=== PATIENT | female | born 1950 ===

== ENCOUNTER 2024-08-29 12:09 | Inpatient (IN) ==
[2024-08-29] MEDS ORDERED: IOPAMIDOL 100 ML BOTTLE IV ONE (12:10)
[2024-08-29] MEDS: 0.9 % SODIUM CHLORIDE 500 ML IV ONE ×2 (12:24→12:37)
[2024-08-29] MEDS: METOPROLOL TARTRATE 5 MG/5 ML VIAL IV SCH ×2 (12:39→23:10)
[2024-08-29] MEDS ORDERED: METOPROLOL TARTRATE 5 MG/5 ML VIAL IV SCH (12:45)
[2024-08-29] MEDS: AMIODARONE 150 MG in DEXTROSE 5% IN WATER 100 ML IV SCH (13:38)
[2024-08-29] MEDS: AMIODARONE 150 MG/3 ML VIAL IV ONE (13:38)
[2024-08-29] MEDS: VANCOMYCIN PER PHARMACY IV ONE (13:39)
[2024-08-29] MEDS: AMIODARONE 360 MG in PREMIX 1 BAG IV SCH ×3 (13:41→19:54)
[2024-08-29 13:45] LABS: Basophils # (Auto) 0.01 K/mcL (0.00-0.30); Basophils % (Auto) 0.1 % (0.0-2.0); Eosinophils # (Auto) 0.09 K/mcL (0.00-0.70); Eosinophils % (Auto) 0.6 % (0.0-7.0); Hematocrit 37.2 % (34.1-44.9); Hemoglobin 10.4 g/dL (11.2-15.7); Lymphocytes # (Auto) 0.92 K/mcL (1.50-4.80); Lymphocytes % (Auto) 6.1 % (15.5-49.0); Mean Cell Volume 84.2 fL (80.0-100.0); Mean Platelet Volume 10.9 fL (8.8-12.5); Monocytes % (Auto) 8.6 % (1.0-12.0); Neutrophils % (Auto) 83.9 % (38.0-78.0); Platelet Count 294 K/mcL (140-440); RBC 4.42 M/mcL (3.59-5.38); Red Cell Distribution Width 19.8 % (11.5-14.5); WBC 15.2 K/mcL (4.5-11.0)
[2024-08-29 13:46] LABS: ALT/SGPT 38 U/L (<40); AST/SGOT 38 U/L (<32); Albumin 3.3 gm/dL (3.2-5.2); Albumin/Globulin Ratio 1.3 (1.0-2.3); Alkaline Phosphatase 221 U/L (39-117); Bilirubin,Total 1.2 mg/dL (0.1-1.0); Blood Urea Nitrogen 72 mg/dL (8-23); Calcium 8.8 mg/dL (8.6-10.4); Carbon Dioxide 19 mmol/L (22-30); Chloride 108 mmol/L (96-108); Creatine Kinase 181 U/L (24-170); Globulin 2.5 gm/dL (2.2-3.7); Glomerular Filtration Rate 31; Glucose 166 mg/dL (70-105); Potassium 5.5 mmol/L (3.3-5.1); Sodium 142 mmol/L (133-145)
[2024-08-29] MEDS: CEFEPIME 2 GM VIAL IV ONE (13:52)
[2024-08-29] MEDS: VANCOMYCIN 1,500 MG in 0.9 % SODIUM CHLORIDE 500 ML IV ONE (13:52)
[2024-08-29 14:36] LABS: Appearance,Urine Cloudy (Clear); Bacteria,Urine Many /hpf (0); Bilirubin,Urine Negative (Negative); Color,Urine Yellow; Glucose,Urine (UA) Negative (Negative); Ketones,Urine Negative (Negative); Leukocyte Esterase,Urine Trace /uL (Negative); Nitrate,Urine Positive (Negative); Protein,Urine 30 mg/dL (Negative); Urine Blood Moderate ery/mcL (Negative); Urine Cellular Cast 3 /lph (0-0); Urine Hyaline Cast 4 /lph (0-2); Urine RBC 20 /hpf (0-3); Urine Renal Epithelial Cells 3 /hpf (0-2); Urine Squamous Epithelial Cell 4 /hpf (0-4); Urine WBC 15 /hpf (0-4); Urobilinogen,Urine Normal
[2024-08-29 14:47] LABS: Free T4 (Free Thyroxine) 1.07 ng/dL (0.93-1.70)
[2024-08-29 14:49] LABS: INR 1.6 (0.9-1.1); Prothrombin Time 19.6 sec (11.9-14.5)
[2024-08-29] MEDS: fentaNYL 100 MCG/2 ML VIAL IV ONE (16:10)
[2024-08-29] MEDS: NALOXONE HCL 0.4 MG/ML VIAL ONE (16:37)
[2024-08-29] MEDS: NALOXONE HCL 0.4 MG/ML VIAL IV ONE (16:37)
[2024-08-29] MEDS: predniSONE 20 MG TABLET PO ONE (17:43)
[2024-08-29] MEDS: FUROSEMIDE 40 MG/4 ML VIAL IV ONE (17:43)
[2024-08-29] MEDS ORDERED: ONDANSETRON 4 MG/2 ML VIAL IV PRN (19:33)
[2024-08-29] MEDS ORDERED: SENNOSIDES 1 TABLET PO PRN (19:33)
[2024-08-29] MEDS ORDERED: NOREPINEPHRINE BITARTRATE 8 MG in 0.9 % SODIUM CHLORIDE 242 ML IV PRN (19:33)
[2024-08-29] MEDS ORDERED: LACTULOSE 20 GM/30 ML ORAL.SOL PO PRN (19:33)
[2024-08-29] MEDS: 0.9 % SODIUM CHLORIDE 250 ML IV SCH (19:35)
[2024-08-29] MEDS ORDERED: NOREPINEPHRINE 250 ML IV PRN (19:49)
[2024-08-29 20:35] LABS: Potassium 4.7 mmol/L (3.3-5.1)
[2024-08-29] MEDS ORDERED: traZODone HCL 50 MG TABLET PO PRN (21:00)
[2024-08-29] MEDS: AMIODARONE 360 MG/200 ML BAG IV ONE (22:36)
[2024-08-29] MEDS: MIDAZOLAM 2 MG/2 ML VIAL IV ONE (22:50)
[2024-08-29] MEDS: predniSONE 20 MG TABLET PO SCH (23:11)
[2024-08-29] MEDS: cefTRIAXone 1 GM VIAL IV SCH (23:11)
[2024-08-29] MEDS: 0.9 % SODIUM CHLORIDE 10 ML SYRINGE IV SCH ×2 (23:12)
[2024-08-29] MEDS: CLOBETASOL PROP OINT 0.05% TUBE 15GM TOPICAL SCH (23:14)
[2024-08-30] MEDS: FUROSEMIDE 100 MG/10 ML VIAL IV SCH ×2 (00:58→02:48)
[2024-08-30] MEDS: APIXABAN 5 MG TABLET PO SCH (00:58)
[2024-08-30] MEDS: DOXYCYCLINE HYCLATE 100 MG TABLET.ORL PO SCH (00:58)
[2024-08-30] MEDS: cefTRIAXone 2 GM in DEXTROSE 5% IN WATER 50 ML IV SCH (00:58)
[2024-08-30] MEDS: cefTRIAXone 1 GM VIAL ONE (01:03)
[2024-08-30] MEDS: METOPROLOL TARTRATE 5 MG/5 ML VIAL IV ONE ×2 (01:09→02:48)
[2024-08-30] MEDS: METOPROLOL TARTRATE 5 MG/5 ML VIAL IV SCH (02:48)
[2024-08-30] MEDS: VANCOMYCIN PER PHARMACY IV ONE (02:48)
[2024-08-30] MEDS: NYSTATIN POWDER BOTTLE 15GM TOPICAL SCH (02:49)
[2024-08-30 05:55] LABS: Basophils # (Auto) 0.01 K/mcL (0.00-0.30); Basophils % (Auto) 0.1 % (0.0-2.0); Eosinophils # (Auto) 0 K/mcL (0.00-0.70); Eosinophils % (Auto) 0 % (0.0-7.0); Hematocrit 34.6 % (34.1-44.9); Hemoglobin 9.9 g/dL (11.2-15.7); Lymphocytes # (Auto) 0.53 K/mcL (1.50-4.80); Lymphocytes % (Auto) 3.9 % (15.5-49.0); Mean Cell Volume 83.4 fL (80.0-100.0); Mean Corpuscular HGB Conc 28.6 g/dL (31.0-36.0); Mean Platelet Volume 10.9 fL (8.8-12.5); Monocytes # (Auto) 0.42 K/mcL (0.10-0.90); Monocytes % (Auto) 3.1 % (1.0-12.0); Neutrophils % (Auto) 92.4 % (38.0-78.0); Platelet Count 256 K/mcL (140-440); RBC 4.15 M/mcL (3.59-5.38); Red Cell Distribution Width 19.8 % (11.5-14.5); WBC 13.6 K/mcL (4.5-11.0)
[2024-08-30] MEDS: AMIODARONE 360 MG/200 ML BAG IV ONE ×2 (05:55→18:55)
[2024-08-30 06:25] LABS: ALT/SGPT 29 U/L (<40); AST/SGOT 18 U/L (<32); Albumin 3.1 gm/dL (3.2-5.2); Albumin/Globulin Ratio 1.4 (1.0-2.3); Alkaline Phosphatase 181 U/L (39-117); Bilirubin,Direct 0.4 mg/dL (<0.3); Bilirubin,Total 0.5 mg/dL (0.1-1.0); Blood Urea Nitrogen 69 mg/dL (8-23); Calcium 8.4 mg/dL (8.6-10.4); Carbon Dioxide 18 mmol/L (22-30); Chloride 108 mmol/L (96-108); Globulin 2.2 gm/dL (2.2-3.7); Glomerular Filtration Rate 33; Glucose 177 mg/dL (70-105); Lactate Dehydrogenase 160 U/L (135-225); Phosphorous 4.7 mg/dL (2.5-4.5); Potassium 4.6 mmol/L (3.3-5.1); Sodium 140 mmol/L (133-145); Triglycerides 86 mg/dL (<150); Uric Acid 10.4 mg/dL (2.5-8.0)
[2024-08-30] MEDS ORDERED: VANCOMYCIN PER PHARMACY IV SCH (07:00)
[2024-08-30] MEDS: FUROSEMIDE 40 MG/4 ML VIAL IV SCH ×3 (07:11→15:06)
[2024-08-30 07:40] LABS: Vancomycin,Random 12.5 ug/mL
[2024-08-30] MEDS: OMEPRAZOLE 20 MG CAPSULE PO SCH (08:58)
[2024-08-30] MEDS: OXYBUTYNIN CHLORIDE 5 MG TAB.XL.24H PO SCH (08:58)
[2024-08-30] MEDS: CITALOPRAM 20 MG TABLET PO SCH (08:58)
[2024-08-30] MEDS: LORATADINE 10 MG TABLET PO SCH (08:59)
[2024-08-30] MEDS: VITAMIN D3 125 MCG TABLET PO SCH (08:59)
[2024-08-30] MEDS: ASPIRIN 81 MG TAB.CHEW PO SCH (09:00)
[2024-08-30] MEDS ORDERED: METOPROLOL TARTRATE 50 MG TABLET PO SCH (09:00)
[2024-08-30] MEDS: ASCORBIC ACID 500 MG TABLET PO SCH (09:00)
[2024-08-30] MEDS: ACETAMINOPHEN 325 MG TABLET PO PRN (10:23)
[2024-08-30] MEDS: VANCOMYCIN 1,500 MG in 0.9 % SODIUM CHLORIDE 500 ML IV SCH (11:37)
[2024-08-30] MEDS: fentaNYL 100 MCG/2 ML VIAL IV PRN (12:32)
[2024-08-30] MEDS: MIDAZOLAM 2 MG/2 ML VIAL ONE (12:32)
[2024-08-30] MEDS: NALOXONE HCL 0.4 MG/ML VIAL IV PRN (12:50)
[2024-08-30] MEDS: NALOXONE HCL 0.4 MG/ML VIAL IV ONE (12:54)
[2024-08-30] MEDS ORDERED: NALOXONE 2 MG/2 ML SYRINGE IV ONE (13:40)
[2024-08-30] MEDS: NALOXONE HCL 0.4 MG/ML VIAL ONE (14:03)
[2024-08-30] MEDS: LACTATED RINGERS 500 ML IV ONE (15:59)
[2024-08-30] MEDS ORDERED: LACTATED RINGERS 500 ML IV SCH (16:00)
[2024-08-30] MEDS: AMIODARONE 360 MG in PREMIX 1 BAG IV SCH (18:49)
[2024-08-30] MEDS: 0.9 % SODIUM CHLORIDE 500 ML IV ONE (19:44)
[2024-08-30] MEDS: DOCUSATE SODIUM 100 MG CAPSULE PO SCH (21:15)
[2024-08-30] MEDS: diphenhydrAMINE 50 MG/ML VIAL ONE (21:16)
[2024-08-30] MEDS: diphenhydrAMINE 50 MG/ML VIAL IV ONE (21:16)
[2024-08-31] MEDS: 0.9 % SODIUM CHLORIDE 500 ML IV ONE (04:28)
[2024-08-31] MEDS: ALBUMIN HUMAN 25 GM/100 ML BAG IV ONE (05:06)
[2024-08-31] MEDS: FUROSEMIDE 100 MG/10 ML VIAL IV ONE (05:06)
[2024-08-31 07:00] LABS: Basophils # (Auto) 0.01 K/mcL (0.00-0.30); Basophils % (Auto) 0.1 % (0.0-2.0); Eosinophils # (Auto) 0 K/mcL (0.00-0.70); Eosinophils % (Auto) 0 % (0.0-7.0); Hematocrit 33.6 % (34.1-44.9); Hemoglobin 9.7 g/dL (11.2-15.7); Lymphocytes # (Auto) 0.52 K/mcL (1.50-4.80); Lymphocytes % (Auto) 3.6 % (15.5-49.0); Mean Cell Volume 83.6 fL (80.0-100.0); Mean Corpuscular HGB Conc 28.9 g/dL (31.0-36.0); Mean Platelet Volume 11.6 fL (8.8-12.5); Monocytes # (Auto) 0.65 K/mcL (0.10-0.90); Monocytes % (Auto) 4.5 % (1.0-12.0); Neutrophils % (Auto) 91.3 % (38.0-78.0); Platelet Count 243 K/mcL (140-440); RBC 4.02 M/mcL (3.59-5.38); Red Cell Distribution Width 19.8 % (11.5-14.5); WBC 14.6 K/mcL (4.5-11.0)
[2024-08-31] MEDS: AMIODARONE 360 MG/200 ML BAG IV ONE (07:17)
[2024-08-31 07:48] LABS: ALT/SGPT 28 U/L (<40); AST/SGOT 16 U/L (<32); Albumin 3.2 gm/dL (3.2-5.2); Albumin/Globulin Ratio 1.3 (1.0-2.3); Alkaline Phosphatase 159 U/L (39-117); Bilirubin,Direct 0.3 mg/dL (<0.3); Bilirubin,Total 0.4 mg/dL (0.1-1.0); Blood Urea Nitrogen 67 mg/dL (8-23); Calcium 8.4 mg/dL (8.6-10.4); Carbon Dioxide 21 mmol/L (22-30); Chloride 105 mmol/L (96-108); Globulin 2.4 gm/dL (2.2-3.7); Glomerular Filtration Rate 33; Glucose 122 mg/dL (70-105); Lactate Dehydrogenase 188 U/L (135-225); Phosphorous 4.2 mg/dL (2.5-4.5); Potassium 4.3 mmol/L (3.3-5.1); Sodium 140 mmol/L (133-145); Triglycerides 93 mg/dL (<150); Uric Acid 10.3 mg/dL (2.5-8.0)
[2024-08-31] MEDS: METOPROLOL TARTRATE 5 MG/5 ML VIAL IV SCH (08:26)
[2024-08-31] MEDS: AMIODARONE 360 MG in PREMIX 1 BAG IV SCH (08:41)
[2024-08-31] MEDS: MIDAZOLAM 2 MG/2 ML VIAL IV PRN (12:40)
[2024-08-31] MEDS ORDERED: ALTEPLASE 2 MG VIAL IV PRN (12:50)
[2024-08-31] MEDS ORDERED: 0.9 % SODIUM CHLORIDE 10 ML SYRINGE IV PRN (12:50)
[2024-08-31] MEDS ORDERED: NALOXONE 2 MG/2 ML SYRINGE IV ONE (13:28)
[2024-08-31] MEDS ORDERED: SODIUM CHLORIDE IRRIG SOLUTION 500 ML BOTTLE IRR ONE (15:37)
[2024-08-31] MEDS: LORazepam 0.5 MG TABLET PO PRN (15:46)
[2024-08-31] MEDS ORDERED: AMIODARONE 360 MG/200 ML BAG IV ONE (17:44)
[2024-08-31] MEDS ORDERED: 0.9 % SODIUM CHLORIDE 10 ML SYRINGE IV SCH (21:00)
[2024-08-31] MEDS ORDERED: MUPIROCIN OINT 2% 22GM NARES SCH (21:00)
== END 2024-08-31 17:56 | disposition short-term general hospital (02) | DRG 308 ==
LOC: ED 12:09 → ICU 19:31
PROVIDERS: ADMIT Student in an Organized Health Care Education/Training Program; ATTEND Student in an Organized Health Care Education/Training Program